=== PATIENT | female | born 1995 | race Caucasian/White ===

== ENCOUNTER 2023-09-20 19:57 | Inpatient (IN) | payer OTHER ==
[2023-09-20] MEDS: LACTATED RINGERS SOLUTION 1,000 ML IV ONE (20:20)
[2023-09-20 20:55] VITALS: RESP 18
[2023-09-20 21:01] LABS: EPI CELLS 24 /uL (0-25.1); HYALINE CASTS 1 /uL (0-3.1); URINE APPEARANCE CLEAR; URINE BACTERIA >9,000 /uL (0-1359); URINE BILIRUBIN NEGATIVE (NEGATIVE); URINE COLOR YELLOW; URINE GLUCOSE (UA) NEGATIVE (NEGATIVE); URINE KETONE NEGATIVE (NEGATIVE); URINE LEUK ESTERASE TRACE (NEGATIVE); URINE NITRITE POSITIVE (NEGATIVE); URINE PROTEIN NEGATIVE (NEGATIVE); URINE RBC 7 /uL (0-23.9); URINE WBC 66 /uL (0-25.8)
[2023-09-20] MEDS: ACETAMINOPHEN 1000 MG/100 ML BAG IVPB ONE (21:30)
[2023-09-20] MEDS: CEFAZOLIN 1 GM in DEXTROSE 5%-WATER - 50 ML IVPB ONE (22:00)
[2023-09-20] MEDS ORDERED: ceFAZolin SODIUM 1 GM VIAL ONE (22:12)
[2023-09-20 22:59] LABS: HEMATOCRIT 29.3 % (32.4-45.2); HEMOGLOBIN 9.9 GM/dL (10.7-15.3); MCH 31.3 pg (25.7-33.7); MCHC 33.7 g/dl (32.0-36.0); MEAN CELL VOLUME 92.8 fl (80-96); MEAN PLT VOLUME 8.2 fl (7.5-11.1); PLATELET COUNT 230 10^3/uL (134-434); RBC 3.16 M/mm3 (3.60-5.2); RDW 12.7 % (11.6-15.6)
[2023-09-20 23:16] VITALS: BMI 24.9
[2023-09-20 23:40] LABS: POTASSIUM 3.7 mmol/L (3.5-5.1)
[2023-09-20 23:42] LABS: ALBUMIN 2.4 g/dl (3.4-5.0); CALCIUM 8.3 mg/dL (8.5-10.1)
[2023-09-20 23:45] LABS: CREATININE 0.5 mg/dL (0.55-1.3)
[2023-09-20 23:47] LABS: BILIRUBIN,TOTAL 0.1 mg/dL (0.2-1); TOT PROT 5.7 g/dl (6.4-8.2)
[2023-09-21] MEDS ORDERED: ceFAZolin SODIUM 1 GM VIAL ONE ×2 (02:18→08:17)
[2023-09-21] MEDS: CEFAZOLIN 1 GM in DEXTROSE 5%-WATER - 50 ML IVPB SCH (02:23)
[2023-09-21] MEDS ORDERED: ACETAMINOPHEN INJECTION 100 ML IVPB ONE (06:34)
[2023-09-21] MEDS: ACETAMINOPHEN 1000 MG/100 ML BAG IVPB PRN (06:35)
[2023-09-21 08:29] VITALS: BP 101/68; PULSE 88
[2023-09-21 09:13] VITALS: TEMP 98.1
== END 2023-09-21 09:13 | disposition home or self-care (01) | DRG 566 ==
LOC: JDEL 19:57 → JLDR 22:45
PROVIDERS: ADMIT Obstetrics & Gynecology Obstetrics; ATTEND Obstetrics & Gynecology Obstetrics
DX: O23.592 Infection of other part of genital tract in pregnancy, second trimester (principal); L02.31 Cutaneous abscess of buttock; O23.42 Unspecified infection of urinary tract in pregnancy, second trimester; N39.0 Urinary tract infection, site not specified
CPT/HCPCS: 36415; 80053; 81003; 85027; 87070; 87086; 87186; 87205; J0131